=== PATIENT | female | born 1965 | race Caucasian/White ===

== ENCOUNTER 2023-07-03 21:52 | Emergency (ER) | payer OTHER ==
[~2023-07-03] VITALS: Ht 157.5 cm; Wt 90.7 kg
[~2023-07-03 21:52] MED LIST: LISI5TAB18 PO
[2023-07-03 21:55] VITALS: BP 180/90; PULSE 92; RESP 16; TEMP 98; O2SAT 98
[2023-07-03] MEDS ORDERED: PHENYLEPHRINE 0.5% 15 ML BTL NS ONE (22:05)
[2023-07-03] MEDS ORDERED: PHENYLEPHRINE 1% 15 ML BTL NS ONE (22:15)
[2023-07-03] MEDS ORDERED: FLONAS NS (23:38)
[2023-07-03 23:50] VITALS: BP 146/78; PULSE 83; RESP 16; O2SAT 95
== END 2023-07-03 23:50 | disposition home or self-care (01) ==
LOC: MED 21:52
DX: R04.0 Epistaxis (principal); I10 Essential (primary) hypertension; Z79.899 Other long term (current) drug therapy
CPT/HCPCS: 99283